=== PATIENT | male | born 1930 | race Caucasian/White ===

== ENCOUNTER 2017-12-09 11:47 | Emergency (ER) | payer MEDICARE, OTHER ==
--- NOTE | 2017-12-09 12:23 | EDM.PDOC ---
ED HPI GENERAL MEDICAL PROBLEM - General Chief Complaint: Abdominal Pain Stated Complaint: ABDOMINAL PAIN AND WEAKNESS Time Seen by Provider: 12/09/17 12:22 Source of Information: Reports: Patient, Other (friend) History Limitations: Reports: No Limitations - History of Present Illness INITIAL COMMENTS - FREE TEXT/NARRATIVE: Harshal is a pleasant 87yo male presents ambulatory to ED accompanied by a friend with complaints of abdominal pain. Pain is in lower abdomen. Started yesterday morning, is constant and he is really unable to describe what the pain feels like. No n/v/d. No hematuria, dysuria or urinary symptoms. No LBP associated. No f/c/s. He slept well last night, has been eating his usual meals without worsening pain. He ate granola based cereal for breakfast (as usual) and a meat sandwich for lunch prior to coming to ED. No diarrhea or change in bowels, no melena/hematochezia. He lives alone in [place]. Walks his dog around 1 mile each morning and then does weight based exercises. He did do his usual exercise this morning, pain started to worsen after that. Still has appendix and gallbladder PMH of DM, blood sugars have been 111 to 114. He is unsure of his last A1C. PCP is Dr. Santillan, states he has only seen him once as he has always returned to [place] to see his PCP for the past 10 years since he has lived in [place]. Duration: Day(s): (2) Location: Reports: Abdomen Improves with: Reports: Rest Worsens with: Reports: Movement Context: Reports: Activity Associated Symptoms: Reports: Weakness. Denies: Confusion, Chest Pain, Cough, cough w sputum, Diaphoresis, Fever/Chills, Headaches, Loss of Appetite, Malaise , Nausea/Vomiting, Shortness of Breath Abdominal Pain Score (Numeric/FACES): 5 - Related Data Allergies Allergy/AdvReac Type Severity Reaction Status Date / Time No Known Allergies Allergy Verified 12/09/17 11:53 Home Meds: Home Meds Allopurinol [Zyloprim] 300 mg PO DAILY 12/09/17 [History] Clopidogrel [Plavix] 75 mg PO DAILY 12/09/17 [History] Furosemide [Lasix] 40 mg PO DAILY 12/09/17 [History] LORazepam [Ativan] 0.5 mg PO QID PRN 12/09/17 [History] Losartan [Cozaar] 100 mg PO DAILY 12/09/17 [History] Memantine HCl [Namenda] 10 mg PO DAILY 12/09/17 [History] Pantoprazole Sodium [Protonix] 40 mg PO BID 12/09/17 [History] Pregabalin [Lyrica] 50 mg PO TID 12/09/17 [History] Rosuvastatin [Crestor] 5 mg PO BEDTIME 12/09/17 [History] Spironolactone [Aldactone] 25 mg PO DAILY 12/09/17 [History] amLODIPine Besylate [Amlodipine Besylate] 10 mg PO DAILY 12/09/17 [History] cloNIDine [Catapres-TTS 3] 1 each TD MCNEILL 12/09/17 [History] Social & Family History - Tobacco Use Smoking Status *Q: Never Smoker ED ROS GENERAL - Review of Systems Review Of Systems: See Below Constitutional: Reports: No Symptoms HEENT: Reports: No Symptoms Respiratory: Reports: No Symptoms Cardiovascular: Reports: No Symptoms, Other (No hx of CAD) Endocrine: Reports: Other (Hx of DM) GI/Abdominal: Reports: Abdominal Pain, Constipation (by hx but bowels have been regular- states takes "metamucil" daily). Denies: Anorexia, Black Stool, Bloody Stool, Diarrhea, Decreased Appetite, Hematemesis, Hematochezia, Melena, Nausea, Vomiting : Reports: No Symptoms Neurological: Reports: No Symptoms ED EXAM, GI/ABD - Physical Exam Exam: See Below Exam Limited By: No Limitations General Appearance: Alert, WD/WN, No Apparent Distress Eyes: Bilateral: EOMI Ears: Hearing Grossly Normal, Other (wears hearing aids) Nose: Normal Inspection Throat/Mouth: Normal Inspection, Normal Lips, Normal Teeth, Normal Gums, Normal Voice, No Airway Compromise Head: Atraumatic, Normocephalic Neck: Normal Inspection, Supple Respiratory/Chest: No Respiratory Distress, Lungs Clear, Normal Breath Sounds Cardiovascular: Normal Peripheral Pulses, Regular Rate, Rhythm, No Edema, Systolic Murmur (grade 2) GI/Abdominal Exam: Soft, No Organomegaly, Tender (diffuse below umbilicus), Abnormal Bowel Sounds (hypoactive). No: Guarding, Rigid, Rebound, Hepatomegaly , Splenomegaly (Male) Exam: Deferred Rectal (Males) Exam: Deferred Back Exam: Normal Inspection Extremities: Normal Inspection, Other (bilat TKA evidenced by surgical scars) Neurological: Alert, Oriented, CN II-XII Intact, Normal Cognition Psychiatric: Normal Affect, Normal Mood Skin Exam: Warm, Dry, Intact EKG INTERPRETATION EKG Date: 12/09/17 Time: 12:02 Rhythm: Other (Sinus rhythm with RBBB) Rate (Beats/Min): 73 Comparison: NA - No Prior EKG EKG Interpretation Comments: Reviewed with Dr. Spicer Course - Vital Signs Last Recorded V/S: Last Vital Signs Temp 98.5 F 12/09/17 11:54 Pulse 80 12/09/17 11:54 Resp 15 12/09/17 11:54 BP 141/50 H 12/09/17 11:54 Pulse Ox 96 12/09/17 11:54 - Orders/Labs/Meds Orders: Active Orders 24 hr Category Date Time Status NPO Now [Nothing per Oral Now Diet] [DIET] Diet 12/09/17 Dinner Active Labs: Laboratory Tests 12/09/17 12/09/17 12/09/17 Range/Units 12:00 12:00 12:00 WBC 9.84 H (4.23-9.07) K/mm3 RBC 4.41 L (4.63-6.08) M/mm3 Hgb 13.5 L (13.7-17.5) gm/L Hct 39.4 L (40.1-51.0) % MCV 89.3 (79.0-92.2) fl MCH 30.6 (25.7-32.2) pg MCHC 34.3 (32.2-35.5) g/dl RDW Std Deviation 46.4 H (35.1-43.9) fL Plt Count 166 (163-337) K/mm3 MPV 11.9 (9.4-12.3) fl Neut % (Auto) 78.8 H (34.0-67.9) % Lymph % (Auto) 13.5 L (21.8-53.1) % [place] % (Auto) 6.9 (5.3-12.2) % Eos % (Auto) 0.2 L (0.8-7.0) Baso % (Auto) 0.4 (0.1-1.2) % Neut # (Auto) 7.75 H (1.78-5.38) K/mm3 Lymph # (Auto) 1.33 (1.32-3.57) K/mm3 [place] # (Auto) 0.68 (0.30-0.82) K/mm3 Eos # (Auto) 0.02 L (0.04-0.54) K/mm3 Baso # (Auto) 0.04 (0.01-0.08) K/mm3 Sodium 137 (136-145) mEq/L Potassium 3.8 (3.5-5.1) mEq/L Chloride 101 (98-107) mEq/L Carbon Dioxide 25 (21-32) mEq/L Anion Gap 14.8 (5-15) BUN 24 H (7-18) mg/dL Creatinine 1.4 H (0.7-1.3) mg/dL Est Cr Clr Drug Dosing 34.81 mL/min Estimated GFR (MDRD) 48 (>60) mL/min BUN/Creatinine Ratio 17.1 (14-18) Glucose 265 H (83-115) mg/dL Hemoglobin A1c (4.50-6.20) % Calcium 9.2 (8.5-10.1) mg/dL Magnesium 2.0 (1.8-2.4) mg/dl Total Bilirubin 0.6 (0.2-1.0) mg/dL AST 24 (15-37) U/L ALT 28 (16-63) U/L Alkaline Phosphatase 73 (46-116) U/L Troponin I < 0.017 (0.00-0.056) ng/mL C-Reactive Protein < 0.2 (<1.0) mg/dL NT-Pro-B Natriuret Pep 251 (0-450) pg/mL Total Protein 7.3 (6.4-8.2) g/dl Albumin 4.0 (3.4-5.0) g/dl Globulin 3.3 gm/dL Albumin/Globulin Ratio 1.2 (1-2) Urine Color (Yellow) Urine Appearance (Clear) Urine pH (5.0-8.0) Ur Specific [place] (1.005-1.030) Urine Protein (Negative) Urine Glucose (UA) (Negative) Urine Ketones (Negative) Urine Occult Blood (Negative) Urine Nitrite (Negative) Urine Bilirubin (Negative) Urine Urobilinogen (0.2-1.0) Ur Leukocyte Esterase (Negative) Urine RBC (0-5) /hpf Urine WBC (0-5) /hpf Ur Epithelial Cells (0-5) /hpf Urine Bacteria (FEW) /hpf Urine Mucus (FEW) /hpf 12/09/17 12/09/17 Range/Units 12:00 12:43 WBC (4.23-9.07) K/mm3 RBC (4.63-6.08) M/mm3 Hgb (13.7-17.5) gm/L Hct (40.1-51.0) % MCV (79.0-92.2) fl MCH (25.7-32.2) pg MCHC (32.2-35.5) g/dl RDW Std Deviation (35.1-43.9) fL Plt Count (163-337) K/mm3 MPV (9.4-12.3) fl Neut % (Auto) (34.0-67.9) % Lymph % (Auto) (21.8-53.1) % [place] % (Auto) (5.3-12.2) % Eos % (Auto) (0.8-7.0) Baso % (Auto) (0.1-1.2) % Neut # (Auto) (1.78-5.38) K/mm3 Lymph # (Auto) (1.32-3.57) K/mm3 [place] # (Auto) (0.30-0.82) K/mm3 Eos # (Auto) (0.04-0.54) K/mm3 Baso # (Auto) (0.01-0.08) K/mm3 Sodium (136-145) mEq/L Potassium (3.5-5.1) mEq/L Chloride (98-107) mEq/L Carbon Dioxide (21-32) mEq/L Anion Gap (5-15) BUN (7-18) mg/dL Creatinine (0.7-1.3) mg/dL Est Cr Clr Drug Dosing mL/min Estimated GFR (MDRD) (>60) mL/min BUN/Creatinine Ratio (14-18) Glucose (83-115) mg/dL Hemoglobin A1c 6.70 H (4.50-6.20) % Calcium (8.5-10.1) mg/dL Magnesium (1.8-2.4) mg/dl Total Bilirubin (0.2-1.0) mg/dL AST (15-37) U/L ALT (16-63) U/L Alkaline Phosphatase (46-116) U/L Troponin I (0.00-0.056) ng/mL C-Reactive Protein (<1.0) mg/dL NT-Pro-B Natriuret Pep (0-450) pg/mL Total Protein (6.4-8.2) g/dl Albumin (3.4-5.0) g/dl Globulin gm/dL Albumin/Globulin Ratio (1-2) Urine Color Yellow (Yellow) Urine Appearance Clear (Clear) Urine pH 6.5 (5.0-8.0) Ur Specific [place] 1.015 (1.005-1.030) Urine Protein Negative (Negative) Urine Glucose (UA) Negative (Negative) Urine Ketones Negative (Negative) Urine Occult Blood Negative (Negative) Urine Nitrite Negative (Negative) Urine Bilirubin Negative (Negative) Urine Urobilinogen 0.2 (0.2-1.0) Ur Leukocyte Esterase Negative (Negative) Urine RBC 0-5 (0-5) /hpf Urine WBC 0-5 (0-5) /hpf Ur Epithelial Cells 0-5 (0-5) /hpf Urine Bacteria Few (FEW) /hpf Urine Mucus Not seen (FEW) /hpf Meds: Medications Discontinued Medications Generic Name Dose Route Start Last Admin Trade Name Freq PRN Reason Stop Dose Admin Sodium Chloride 1,000 mls @ 999 mls/hr 12/09/17 12:39 12/09/17 12:43 Normal Saline IV 12/09/17 13:39 999 mls/hr ONETIME ONE Administration Metronidazole 500 mg/ Premix 100 mls @ 100 mls/hr 12/09/17 13:33 12/09/17 13: 44 IV 12/09/17 14:32 100 mls/hr ONETIME ONE Administration - Re-Assessments/Exams Free Text/Narrative Re-Assessment/Exam: 12/09/17 12:48 87yo male with 2 day hx of lower abd pain, made worse by activity this morning. No f/c/s, n/v/d or complaints. Hx of constipation evidenced by metamucil daily and hx of DM. Labs ordered, 1L NS infused IV. Pending labs will order imaging - xray vs CT. I am questioning diverticulitis dx. Free Text/Narrative Re-Assessment/Exam: 12/09/17 14:38 Review labs with patient and friend. He states he is feeling so much better already. I treated him with flagyl 500mg IV, 1L IVF. Option given for CT of abdomen to r/o diverticulitis, he declines CT at this time. Will treat with PO flagyl TID x 7 days, push fluids, he understands if pain worsens or he becomes feverish, nausea, diarrhea he is to return. Otherwise he is to follow up with PCP, Dr. Santillan within 5-7 days for recheck. 12/09/17 14:45 Departure - Departure Time of Disposition: 14:39 Disposition: Home, Self-Care 01 Condition: Good Clinical Impression: Diverticulitis Abdominal pain Qualifiers: Abdominal location: lower abdomen, unspecified Qualified Code(s): R10.30 - Lower abdominal pain, unspecified - Discharge Information Instructions: Diverticulitis, [id number], Abdominal Pain, Adult, [id number] Referrals: Mina Santillan MD [Primary Care Provider] - Forms: ED Department Discharge Additional Instructions: Push fluids; increase water from 3 bottles to 5 bottles daily. Continue metamucil as you have been doing Decrease weight based activities for the next 3-5 days, you can continue to walk daily. Avoid or limit foods with seeds, nuts, popcorn, granola. Flagyl 500mg 3 times daily with lots of water for 7 days. Avoid alcohol with this medication. Return to ER if pain returns or worsens, if you become feverish, chilled, sweats , diarrhea or nausea. Recommend follow up with Dr. Santillan for mildly elevated kidney function ( creatinine) test. A1C is 6.7- average 3 month blood sugar, this is excellent. Your white blood cell count was slightly elevated and you were mildly anemic, all other lab values were normal. Again, recommend to follow up with Dr. Santillan for this. Follow up with Dr. Santillan within 5-7 days of this visit- call clinic for appointment: [phone]. - My Orders Last 24 Hours: My Active Orders 12/09/17 Dinner NPO Now [Nothing per Oral Now Diet] [DIET] - Assessment/Plan Last 24 Hours: My Active Orders 12/09/17 Dinner NPO Now [Nothing per Oral Now Diet] [DIET]
[2017-12-09] MEDS ORDERED: Sodium Chloride 0.9% 1,000 ML IV ONE (12:39)
[2017-12-09] MEDS ORDERED: metroNIDAZOLE/Normal Saline 500 MG in Premix Bag 1 BAG IV ONE (13:33)
== END 2017-12-09 15:08 | disposition home or self-care (01) ==
LOC: JD.ED 11:47
DX: K57.92 Diverticulitis of intestine, part unspecified, without perforation or abscess without bleeding (principal); Z79.899 Other long term (current) drug therapy
CPT/HCPCS: 36415; 80053; 81001; 83036; 83735; 83880; 84484; 85025; 86140; 96361; 96365; 99284; J7040

== ENCOUNTER 2017-12-13 09:38 | Emergency (ER) | payer MEDICARE, BC ==
[2017-12-13] MEDS ORDERED: Sodium Chloride 0.9% 10 ML Syringe FLUSH PRN (11:13)
[2017-12-13] MEDS ORDERED: Sodium Chloride 0.9% 1,000 ML IV ONE (11:13)
--- NOTE | 2017-12-13 11:26 | EDM.PDOC ---
ED HPI GENERAL MEDICAL PROBLEM - General Chief Complaint: Abdominal Pain Stated Complaint: DIZZY Time Seen by Provider: 12/13/17 10:59 Source of Information: Reports: Patient, Family History Limitations: Reports: No Limitations - History of Present Illness INITIAL COMMENTS - FREE TEXT/NARRATIVE: Patient is a 87-year-old male who presents to the ED complaining of dizzy spells. States he's not drinking enough water. States the dizziness comes about with body position changes. He has no dizziness with turning his head left to right. He has not describes the sensation as the room is spinning. Dizziness does resolve with stopping and resting for a short period of time. This morning had a longer episode of almost 45 minutes complaining of some dizziness. Patient states he wakes up normally about 4:00 in the morning exercises in the morning consisting of 100 sit ups. He's denies any focal neurological deficits. He has had no syncopal episodes. He denies any fever, sinus congestion, runny nose, sore throat, ear pain, chest pain, shortness of breath, nausea vomiting, diarrhea, blood in stool, weakness to the upper and lower extremities, difficulty swallowing, slurred speech, loss of vision, or any additional complaints. Patient has a history of hypertension and was recently started on a new blood pressure medication. THis was spironolactone, started two weeks ago. Of note patient does take all his blood pressure medications at the same time every morning. He was evaluated in the ED December 09, 2017 for similar symptoms. At that point he had some abdominal discomfort concerning for diverticulitis. He was started on Flagyl 500 mg 3 times a day for 7 days. He has a follow-up appointment with PCP scheduled for tomorrow morning. Patient states since evaluation at that time he's had no abdominal pain. He also has a history of constipation. Patient has a history of gout, coronary dise fluid retention, anxiety, hypertension, hypercholesteremia., Headache Pain Score (Numeric/FACES): 4 - Related Data Allergies Allergy/AdvReac Type Severity Reaction Status Date / Time No Known Allergies Allergy Verified 12/09/17 11:53 Home Meds: Home Meds Allopurinol [Zyloprim] 300 mg PO DAILY 12/09/17 [History] Clopidogrel [Plavix] 75 mg PO DAILY 12/09/17 [History] Furosemide [Lasix] 40 mg PO DAILY 12/09/17 [History] LORazepam [Ativan] 0.5 mg PO QID PRN 12/09/17 [History] Losartan [Cozaar] 100 mg PO DAILY 12/09/17 [History] Memantine HCl [Namenda] 10 mg PO DAILY 12/09/17 [History] Pantoprazole Sodium [Protonix] 40 mg PO BID 12/09/17 [History] Pregabalin [Lyrica] 50 mg PO TID 12/09/17 [History] Rosuvastatin [Crestor] 5 mg PO BEDTIME 12/09/17 [History] Spironolactone [Aldactone] 25 mg PO DAILY 12/09/17 [History] amLODIPine Besylate [Amlodipine Besylate] 10 mg PO DAILY 12/09/17 [History] cloNIDine [Catapres-TTS 3] 1 each TD MCNEILL 12/09/17 [History] Past Medical History Cardiovascular History: Reports: Hypertension Musculoskeletal History: Reports: Gout Neurological History: Reports: TIA 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 Denies: Fever, Chills, Malaise, Weakness, Decreased Appetite HEENT: Reports: No Symptoms Respiratory: Denies: Shortness of Breath, Wheezing, Pleuritic Chest Pain, Cough , Sputum, Hemoptysis Cardiovascular: Denies: Chest Pain, Dyspnea on Exertion, Lightheadedness, Palpitations, Syncope GI/Abdominal: Denies: Abdominal Pain, Black Stool, Bloody Stool, Constipation, Diarrhea, Decreased Appetite, Distension, Flatus, Hematemesis, Hematochezia, Melena, Nausea, Vomiting : Reports: No Symptoms Musculoskeletal: Reports: No Symptoms Skin: Reports: No Symptoms Neurological: Reports: Dizziness (With body position changes), Gait Disturbance (Patient states he has unsteady gait at times with body position changes.). Denies: Confusion, Headache, Numbness, Syncope, Tingling, Trouble Speaking, Difficulty Walking, Weakness ED EXAM, DIZZINESS - Physical Exam Exam: See Below Exam Limited By: Other (Hearing loss) General Appearance: Alert, WD/WN, No Apparent Distress Eye Exam: Bilateral Eye: EOMI, Normal Inspection, Nystagmus (None noted), PERRL Nystagmus: No: worsens with head to L, worsens with head to R, reproducible, reversible, constant, short duration Ears: Hearing Grossly Normal (With hearing aid to the left ear) Nose: Normal Inspection Throat/Mouth: Normal Inspection, Normal Oropharynx, Normal Voice, No Airway Compromise, Other (No slurred speech, no uvular deviation, no deviation of the tongue.) Head Exam: Atraumatic, Normocephalic Vertigo: No: worsens with head to L, worsens with head to R, reproducible, reversible, constant, short duration Neck: Normal Inspection, Supple Respiratory/Chest: No Respiratory Distress, Lungs Clear, Normal Breath Sounds, Chest Non-Tender Cardiovascular: Normal Peripheral Pulses, Regular Rate, Rhythm GI/Abdominal: Normal Bowel Sounds, Soft, Non-Tender, No Organomegaly Neurological: Alert, Normal Mood/Affect, Normal Dorsiflexion, CN II-XII Intact, Normal Plantar Flexion, No Motor/Sensory Deficits, Oriented x 3, Other (No facial droop, no slurred speech, no uvula deviation. No weakness discrepancy CRP and lower extremities. Cerebellar function is intact finger-nose, rapid alternating movements, [id number]. Per nursing staff patient's gait was normal with walking to the ED evaluation room and also to the bathroom.) Back Exam: Normal Inspection Extremities: Normal Inspection, Normal Range of Motion, Non-Tender, No Pedal Edema, Normal Capillary Refill Psychiatric: Normal Affect, Normal Mood Skin Exam: Warm, Dry, Intact, Normal Color Course - Vital Signs Last Recorded V/S: Last Vital Signs Temp 98.8 F 12/13/17 16:23 Pulse 65 12/13/17 16:23 Resp 18 12/13/17 16:23 BP 137/66 12/13/17 16:23 Pulse Ox 98 12/13/17 16:23 Orthostatic Blood Pressure [ 156/68 Standing] Orthostatic Blood Pressure [ 148/67 Sitting] Orthostatic Blood Pressure [ 137/62 Supine] - Orders/Labs/Meds Labs: Laboratory Tests 12/13/17 12/13/17 12/13/17 Range/Units 10:10 10:10 12:32 WBC 8.20 (4.23-9.07) K/mm3 RBC 4.27 L (4.63-6.08) M/mm3 Hgb 13.0 L (13.7-17.5) gm/L Hct 38.2 L (40.1-51.0) % MCV 89.5 (79.0-92.2) fl MCH 30.4 (25.7-32.2) pg MCHC 34.0 (32.2-35.5) g/dl RDW Std Deviation 46.5 H (35.1-43.9) fL Plt Count 180 (163-337) K/mm3 MPV 12.0 (9.4-12.3) fl Neutrophils % (Manual) 75 H (40-60) % Band Neutrophils % 0 (0-10) % Lymphocytes % (Manual) 17 L (20-40) % Atypical Lymphs % 0 % Monocytes % (Manual) 7 (2-10) % Eosinophils % (Manual) 1 (0.8-7.0) % Basophils % (Manual) 0 L (0.2-1.2) Platelet Estimate Adequate RBC Morph Comment Normal Sodium 141 (136-145) mEq/L Potassium 3.7 (3.5-5.1) mEq/L Chloride 105 (98-107) mEq/L Carbon Dioxide 26 (21-32) mEq/L Anion Gap 13.7 (5-15) BUN 11 (7-18) mg/dL Creatinine 0.9 (0.7-1.3) mg/dL Est Cr Clr Drug Dosing 54.15 mL/min Estimated GFR (MDRD) > 60 (>60) mL/min BUN/Creatinine Ratio 12.2 L (14-18) Glucose 113 (83-115) mg/dL Calcium 8.9 (8.5-10.1) mg/dL Total Bilirubin 0.5 (0.2-1.0) mg/dL AST 33 (15-37) U/L ALT 36 (16-63) U/L Alkaline Phosphatase 66 (46-116) U/L CK-MB (CK-2) 2.0 (0-3.6) ng/ml Troponin I < 0.017 (0.00-0.056) ng/mL C-Reactive Protein 0.8 (<1.0) mg/dL Total Protein 7.2 (6.4-8.2) g/dl Albumin 3.8 (3.4-5.0) g/dl Globulin 3.4 gm/dL Albumin/Globulin Ratio 1.1 (1-2) Urine Color Yellow (Yellow) Urine Appearance Clear (Clear) Urine pH 7.0 (5.0-8.0) Ur Specific [place] 1.015 (1.005-1.030) Urine Protein Negative (Negative) Urine Glucose (UA) Negative (Negative) Urine Ketones Negative (Negative) Urine Occult Blood Negative (Negative) Urine Nitrite Negative (Negative) Urine Bilirubin Negative (Negative) Urine Urobilinogen 0.2 (0.2-1.0) Ur Leukocyte Esterase Negative (Negative) Urine RBC Not seen (0-5) /hpf Urine WBC Not seen (0-5) /hpf Ur Epithelial Cells Not seen (0-5) /hpf Urine Bacteria Not seen (FEW) /hpf Urine Mucus Not seen (FEW) /hpf Meds: Medications Discontinued Medications Generic Name Dose Route Start Last Admin Trade Name Freq PRN Reason Stop Dose Admin Sodium Chloride 1,000 mls @ 500 mls/hr 12/13/17 11:13 12/13/17 11:23 Normal Saline IV 12/13/17 13:12 500 mls/hr ONETIME ONE Administration Sodium Chloride 10 ml 12/13/17 11:13 12/13/17 11:28 Saline Flush FLUSH 10 ml ASDIRECTED PRN Administration Keep Vein Open - Re-Assessments/Exams Free Text/Narrative Re-Assessment/Exam: Patient was in the ED 1 hours 17 minutes prior to evaluation by me. Peripheral IV established. Patient had positive orthostatic vitals. Ordered a saline 1 L. Initial labs and studies include CBC, chem 14, CRP, proBNP, troponin, UA, CK-MB , and EKG. Reviewed previous ED visit dated December 09, 2017. Patient complaining of abdominal pain to the lower abdomen. He denies any diarrhea or change in bowels, no melena , no blood in stool. Patient's white blood cell count is mildly elevated 9.84, hemoglobin 13.5, white count was 66, neutrophil percentage is 78.8, neutrophil number was 7.75, potassium 3.8, AG 14.8, V1 24, creatinine 1.4, glucose 265, troponin was within normal limits, CRP within normal limits. ProBNP was 251. Hemoglobin was negative for infection. His hemoglobin A1c was 6.70. Patient states at that time he had a 2 day history of lower abdominal pain worse with activity that morning. He had a history constipation with evidence by Metamucil daily and history of diabetes. Patient states he felt much better after receiving the negative IV fluids. He was started on Flagyl 500 mg with concerns of diverticulitis be potential cause. Patient refuses the CT the abdomen. He is instructed to take Flagyl 3 times a day for 7 days and push the fluids. Patient does admit to having recheck with his PCP Dr. Santillan scheduled for tomorrow morning. Labs reviewed: White blood cell count 8.20, hemoglobin 13.0, platelet count 180 , CMP essentially normal, troponin less than 0.017, CK-MB is 2.0, CRP 0.8, proBNP is pending. UA negative. 1428 IV fluids are in. Per nursing staff patient's orthostatic vitals have resolved. He is not dizzy with standing. I have spoken with Rochelle [employer] to discuss home health care with the patient. She has not spoken with him yet. 12/13/17 14:46 Rochelle with social [employer] senior associate has spoken with the patient. He is not open to any home healthcare at this point. Patient continues to drive to [employer] and also [employer]. She states patient's daughter is returning back in January and will address any further needs at that time. At this point the patient' s friend will manage his medications. Patient does have a scheduled appointment with Dr. Santillan for tomorrow. I have discussed results of the labs, EKG, and therapy findings. I suspect patient is not consuming enough water wall on Aldactone and also Lasix. He was found on admission to the ED with postive orthostatic vitals . All symptoms have resolved with 1 L of fluid. I discussed with him about modifying his blood pressure medications and spreading out these dosages today. He agrees with this. In addition suspect decrease in diuretics may be required as well. I will let him see his PCP tomorrow to discuss this. The patient remained hemodynamically stable while under my care in the E.D. I discussed the concerning symptoms for which to returnto the E.D. with the patient/family. The patient/family verbalized understanding. All questions were answered. 12/13/17 14:49 PRO BNP is not able to be ran until tomorrow per lab. Departure - Departure Time of Disposition: 14:58 Disposition: Home, Self-Care 01 Condition: Good Clinical Impression: Orthostatic dizziness, Volume depletion - Discharge Information Instructions: Dizziness, [id number] Referrals: Mina Santillan MD [Primary Care Provider] - Forms: ED Department Discharge Additional Instructions: As discussed suspect cause of symptoms is related to the multiple BP medications taken at the same time compounding effects and also volume depletion. Suggest taking BP medications over a two to 3 hr window to ensure synergistic affect is less severe. Ensure adequate hydration. Check BP daily with log kept. Bring log and bp machine with you to appt with PCP if you notice BP trend upward or down. Return to the E.D. for any new or worsening symptoms.
== END 2017-12-13 15:30 | disposition home or self-care (01) ==
LOC: JD.ED 09:38
DX: E86.9 Volume depletion, unspecified (principal); R42 Dizziness and giddiness; I10 Essential (primary) hypertension; E10.9 Type 1 diabetes mellitus without complications; Z79.899 Other long term (current) drug therapy
CPT/HCPCS: 36415; 80053; 81001; 82553; 84484; 85025; 86140; 93005; 96360; 96361; 99285; J7040; J7050; 83880